=== PATIENT | male | born 1940 | race Caucasian/White ===

== ENCOUNTER 2021-12-02 11:27 | Emergency (ER) | payer MEDICARE, BC ==
[2021-12-02 12:39] LABS: ESTIMATED GFR 47 mL/min (>60)
[2021-12-02] MEDS ORDERED: Phytonadione 10 MG in Sodium Chloride 0.9% 50 ML IV ONE (13:16)
[2021-12-02] MEDS ORDERED: Factor IX Complex Human 500 UNIT VIAL IV STA (13:16)
== END 2021-12-02 15:11 | disposition home or self-care (01) ==
LOC: JD.ED 11:27
DX: I60.9 Nontraumatic subarachnoid hemorrhage, unspecified (principal); Z91.041 Radiographic dye allergy status; Z79.899 Other long term (current) drug therapy; Z79.01 Long term (current) use of anticoagulants
CPT/HCPCS: 36415; 70450; 80053; 83735; 84484; 85025; 85610; 93005; 96365; 96375; 99285; J3430; J7168; 93010; 99284